=== PATIENT | male | born 1995 | race Caucasian/White ===

== ENCOUNTER 2016-07-29 07:29 | Emergency (ER) | payer OTHER ==
[~2016-07-29] VITALS: Wt 68.0 kg
[~2016-07-29 07:29] MED LIST: ACYC800T PO; CETI10TA34 PO; FLUT9.9S NASAL; IBUP-1542 PO; TYL500 PO
[2016-07-29] MEDS ORDERED: BUPIVACAINE 0.25% (MPF) 10 ML 10 ML VIAL INJ ONE (08:30)
--- NOTE | 2016-07-29 08:57 | RADRPT ---
PROCEDURE: Lumbar spine series CLINICAL INDICATION: Low back pain TECHNIQUE: 2 views of the lumbar spine are available for review COMPARISON: None available FINDINGS: There is mild straightening of the normal lumbar lordosis. Alignment is otherwise intact. No acute fracture or dislocation is seen. Vertebral body heights are well maintained. Intervertebral disk he ights are well maintained. Paraspinous soft tissues are grossly unremarkable. IMPRESSION: 1. Mild nonspecific straightening of the normal lumbar lordosis. 2. Otherwise unremarkable lumbar spine series. RPTAT: KK .Cortez Frazier MD, MD Date Time Electronically viewed and signed by .Cortez Frazier MD, on 07/29/2016 08:56 .B/
[2016-07-29] MEDS ORDERED: BUPIVACAINE 0.25% (MPF) 30 ML INJ INJ SCH (09:00)
[2016-07-29] MEDS ORDERED: IBUP-1542 PO (09:40)
[2016-07-29] MEDS ORDERED: KETOROLAC 60 MG INJ IM STA (09:54)
--- NOTE | 2016-07-29 10:30 | ERD ---
ER Documentation Chief Complaint Date/Time DATE: 07/29/16 TIME: 10:24 Chief Complaint LOWER BACK PAIN HPI 20-year-old male with history of chronic low back pain complaining of worsening back pain since yesterday. The pain is sharp and constant, radiates his right leg. The pain is worse with movement. Patient states that usually he has pain radiating down the left leg, but it was bearable. The new pain is interfering with his daily living. Patient works in maintenance, his work involving frequent bending, kneeling, and heavy lifting. Denies recent falls or injuries. Denies saddle paresthesia. Denies bowel or bladder dysfunction. Denies fever or chills. ROS All systems reviewed and are negative except as per history of present illness. Medications Home Meds Active Scripts Ibuprofen* (Motrin*) 600 Mg Tab, 600 MG PO Q6H Y for PAIN AND OR ELEVATED TEMP, #30 TAB Prov:GUME BALTAZAR PODOPEDIATRICIAN 07/29/16 Ibuprofen* (Ibuprofen*) 600 Mg Tablet, 600 MG PO Q6H Y for PAIN AND OR ELEVATED TEMP, #30 TAB Prov:CARLEY VILLATORO NP 09/12/15 Cetirizine Hcl* (Cetirizine Hcl*) 10 Mg Tab.chew, 10 MG PO DAILY, #30 TAB Prov:CARLEY VILLATORO NP 09/12/15 Fluticasone Propionate (Flonase Allergy Relief) 9.9 Ml [place].susp, 1 SPRAY NASAL DAILY, #1 BOTTLE TO EACH NOSTRIL Prov:CARLEY VILLATORO NP 09/12/15 Acetaminophen* (Tylenol*) 500 Mg Tab, 500 MG PO Q6 Y for MILD PAIN LEVEL 1-3, # 30 TAB Prov:DWIGHT TO PA-C 04/05/15 Acyclovir* (Acyclovir*) 800 Mg Tablet, 800 MG PO QID, #20 TAB 0 Refills Prov:DWIGHT TO PA-C 04/05/15 Reported Medications [none] Unknown Strength No Conflict Check 09/12/15 Allergies Allergies: Coded Allergies: No Known Allergy (Unverified , 09/12/15) PMhx/Soc History of Surgery: No Anesthesia Reaction: No Hx Neurological Disorder: No Hx Respiratory Disorders: No Hx Cardiac Disorders: No Hx Psychiatric Problems: No Hx Miscellaneous Medical Probl: No Hx Alcohol Use: Yes (Occasional) Hx Substance Use: Yes (Colbert occassional) Hx Tobacco Use: Yes (quit 1 month ago) Smoking Status: Former smoker Physical Exam Vitals Vital Signs Date Time Temp Pulse Resp B/P Pulse Ox O2 Delivery O2 Flow Rate FiO2 07/29/16 07:30 98.0 80 18 146/91 99 Physical Exam General impression: Well-developed, well-nourished. Alert, oriented, in no acute distress Head: Normocephalic, atraumatic. Neck: Supple, nontender. No lymphadenopathy. No nuchal rigidity. Respiration: Normal respiratory effort. Lungs clear to auscultate bilaterally. No wheezes, rales or rhonchi. Cardiovascular: Regular rate and rhythm. No murmurs or extra heart sounds. Back: Normal to inspection. Mild midline spine tenderness at L5 level. No CVA tenderness. Muscle spasm of the right buttock noted. Extremities: Extremities normal to inspection, nontender. ROM normal. Neuro: Mental status normal, speech normal. IT [employer] grossly intact. No saddle paresthesia. Skin: Normal turgor. No rash or lesions. Psych: Normal mood and affect. Results 24 hrs Current Medications Medications (Trade) Dose Ordered Sig/Zhen Route PRN Reason Start Time Stop Time Status Last Admin Dose Admin Bupivacaine HCl (Marcaine 0.25% (Mpf) 10 ml) 10 ml ONCE ONCE INJ 07/29/16 08:30 07/29/16 08:31 DC Bupivacaine HCl (Marcaine 0.25% (Mpf) 30 ml) DOSE PER MD ONCE INJ 07/29/16 09:00 07/29/16 09:01 DC Ketorolac Tromethamine (Toradol) 60 mg ONCE STAT IM 07/29/16 09:54 07/29/16 09:55 DC 07/29/16 09:59 PROCEDURE: Lumbar spine series CLINICAL INDICATION: Low back pain TECHNIQUE: 2 views of the lumbar spine are available for review COMPARISON: None available FINDINGS: There is mild straightening of the normal lumbar lordosis. Alignment is otherwise intact. No acute fracture or dislocation is seen. Vertebral body heights are well maintained. Intervertebral disk heights are well maintained. Paraspinous soft tissues are grossly unremarkable. IMPRESSION: 1. Mild nonspecific straightening of the normal lumbar lordosis. 2. Otherwise unremarkable lumbar spine series. RPTAT: KK .Cortez Frazier MD, Date Time Electronically viewed and signed by .Cortez Frazier MD, MD on 2016 08:56 .B/ CC: GUME BALTAZAR PODOPEDIATRICIAN Procedures/MDM Procedure note: Trigger point injection Trigger point injection performed by ga. 10 mL of bupivacaine is injected into right buttock. Total number muscle groups injected: 1. Patient reports slight improvement of pain after the trigger point injection. X-ray of the lumbar spine is unremarkable. I doubt spinal fracture, subluxation , disc herniation, spinal epidural abscess, or cauda equina syndrome. Likely, patient's new onset pain is due to muscle spasm. Toradol 60 mg IM also given to the patient in the ED. Patient appears well, stable for discharge and outpatient management. Medical decision making shared with patient and family. Education provided to patient and family. Patient and family expressed understanding of the plan. Medications on discharge: Ibuprofen. Follow-up: Primary care provider in 2-3 days or return to ED if worse. Departure Diagnosis: Primary Impression: Back spasm Condition: Good Patient Instructions: Back Spasm, No Trauma Additional Instructions: Llame al doctor MAANA y gregorio guilherme SHANNON PARA DENTRO DE 2-3 PAULINO.Dgale a la secretaria que nosotros le instruimos hacer esta shannon.Avise o llame si morales condicin se empeora antes de la shannon. Regresa aqui si peor o no mejor. GUME BALTAZAR NP Jul 29, 2016 10:29
== END 2016-07-29 10:50 | disposition home or self-care (01) ==
LOC: FTE 07:29
DX: M62.830 Muscle spasm of back (principal); Z87.891 Personal history of nicotine dependence
CPT/HCPCS: 72100; 96372; J1885; Z7502; Z7610